=== PATIENT | male | born 1975 | race Caucasian/White ===

== ENCOUNTER → 2024-06-19 14:45 | Outpatient (REF) | payer OTHER, SELFPAY | LOC: HWRCS 14:45 | PROVIDERS: ATTENDING PHYSICIAN Internal Medicine Cardiovascular Disease; FAMILY PHYSICIAN Family Medicine | DX: R06.02 Shortness of breath (principal) | CPT/HCPCS: 93306 ==

== ENCOUNTER → 2024-07-10 07:24 | Outpatient (REF) | payer OTHER, SELFPAY | LOC: RCS 07:24 | PROVIDERS: ATTENDING PHYSICIAN Internal Medicine Cardiovascular Disease | DX: R07.9 Chest pain, unspecified (principal); E78.5 Hyperlipidemia, unspecified; Z82.49 Family history of ischemic heart disease and other diseases of the circulatory system; R00.2 Palpitations | CPT/HCPCS: 93017 ==